=== PATIENT | female | born 1990 | race Caucasian/White ===

== ENCOUNTER 2017-01-02 05:30 | Day surgery (SDC) | payer BC ==
[~2017-01-02] VITALS: Ht 167.6 cm; Wt 86.2 kg
[2017-01-02] MEDS ORDERED: LR 1,000 ML IV SCH (08:09)
[2017-01-02] MEDS ORDERED: HYDROmorphone 1 MG INJ. 1 MG/ML AMPUL IVP PRN (08:15)
[2017-01-02] MEDS ORDERED: ONDANSETRON HCL 4 MG/2 ML VIAL IVP PRN (08:15)
[2017-01-02] MEDS ORDERED: HYDROmorphone 2 MG/ML VIAL IVP PRN ×2 (08:15)
[2017-01-02] MEDS ORDERED: MEPERIDINE HCL/PF 25 MG/ML DISP.SYRIN IVP PRN ×2 (08:15)
[2017-01-02 10:12] VITALS: BP_SYST 135
== END 2017-01-02 10:30 | disposition home or self-care (01) ==
LOC: SMU 05:30 → SDS 05:30
PROVIDERS: ATTEND Otolaryngology
DX: J35.01 Chronic tonsillitis (principal); J35.1 Hypertrophy of tonsils; Z88.1 Allergy status to other antibiotic agents; Z80.8 Family history of malignant neoplasm of other organs or systems
CPT/HCPCS: 42826; 88304; J7120